=== PATIENT | female | born 1960 | race Hispanic/Latino ===

== ENCOUNTER 2020-08-07 09:46 | Emergency (ER) | payer OTHER, SELFPAY ==
[2020-08-07] MEDS ORDERED: Ondansetron PF 4 MG/2 ML Vial ONE (11:27)
[2020-08-07] MEDS ORDERED: Morphine 4 MG/ML VIAL ONE (11:27)
[2020-08-07] MEDS ORDERED: Ketorolac Tromethamine 30 MG/ML VIAL ONE (11:34)
[2020-08-07 12:05] LABS: #Lymphocytes 1.3 thou/uL (1.20-3.40); #Monocytes 0.9 thou/uL (0.11-0.59); %Basophils 0.2 % (0.0-1.0); %Eosinophils 0.3 % (0.0-10.0); %Lymphocytes 8.7 % (21.0-51.0); %Neutrophils 84.8 % (42.0-75.0); Hemoglobin 10.5 g/dL (12.0-16.0); Mean Corpuscular HGB CONC 33.4 g/dL (32.0-36.0); Mean Corpuscular Hemoglobin 28.6 pg (27.0-31.0); Mean Corpuscular Volume 85.5 fL (78.0-98.0); Mean Platelet Volume 8.1 fL (7.4-10.4); Platelet Count 161 thou/uL (130-400); RBC Distribution Width 12.5 % (11.5-14.5); Red Blood Cell (RBC) Count 3.67 mill/uL (4.20-5.40); White Blood Cell (WBC) Count 15.3 thou/uL (4.8-10.8)
[2020-08-07 12:24] LABS: ALT (SGPT) 22 U/L (8-55); AST (SGOT) 13 U/L (5-34); Albumin 2.2 g/dL (3.5-5.0); Alkaline Phosphatase 155 U/L (40-110); Anion Gap 13 mmol/L (10-20); BUN (Urea Nitrogen) 30 mg/dL (9.8-20.1); Bilirubin, Total 0.7 mg/dL (0.2-1.2); Calc. Creatinine Clearance 0 mL/min (70-130); Carbon Dioxide 22 mmol/L (22-29); Chloride 103 mmol/L (98-107); Globulin 3.5 g/dL (2.4-3.5); Glucose 219 mg/dL (70-105); Lipase Less than 4 U/L (8-78); Potassium 3.8 mmol/L (3.5-5.1); Protein, Total 5.7 g/dL (6.0-8.3); Sodium 134 mmol/L (136-145)
--- NOTE | 2020-08-07 13:50 | CT ---
CT Abdomen Pelvis WO Con 08/07/2020 1:30 PM HISTORY: Suprapubic pain as well as left groin pain with radiation of pain into the left lower extremity. COMPARISON: 08/26/2012 Technique: Multiple contiguous axial CT images are obtained through the abdomen and pelvis without IV contrast. Coronal reformats are provided. FINDINGS: This examination is limited for the evaluation of solid organs and vascular structures due to the lac k of intravenous contrast. Lower Chest: Minimal bilateral pleural effusions are present with associated passive atelectasis grea ter on the left. Liver: Grossly normal non-enhanced CT appearance. Gallbladder: Not visualized in likely surgically absent. Pancreas: Grossly normal nonenhanced CT appearance. Spleen: Grossly normal nonenhanced CT appearance. Adrenals: Normal nonenhanced appearance of the right adrenal gland. Left gland is not delineated and likely surgically absent. Kidneys and ureters: Evidence of left nephrectomy. No right renal or ureteral calculus is seen. There is mild caliectasis on the right similar to prior study. Perinephric stranding is seen on the right. While this is nonspecific, pyelonephritis would be difficult to exclude. Correlation with urin alysis is recommended. Urinary bladder: Urinary bladder has a normal CT appearance. Reproductive Organs: There are a few exophytic increased density structures seen involving the anteri or as well as posterior body of the uterus measuring approximately 2 cm probably representing uterine fibroids. Lymph Nodes: No enlarged lymph nodes. Bowel: Normal caliber. Appendix: The appendix is normal in caliber. Peritoneum: Minimal inflammatory stranding seen in the region of the root of the mesentery. Retroperitoneum: within normal limits. Vessels: Vascular calcifications in the abdominal aorta and iliac arteries. Abdominal Wall: There is inflammatory stranding seen in the left inguinal region and extending inferi nagi and medially into the medial aspect of the fat in the perineal region. There is incomplete visualization of a low-density structure in the most inferior aspect of the perineal fat measuring 17 mm x 8 mm. This could represent focus of fluid but is incompletely imaged. No obvious fluid collection is seen to suggest abscess in this region. Few mildly prominent lymph nodes are seen in th e left inguinal region measuring 1.2 cm in short axis dimension likely reactive in origin. Bones: 6 IMPRESSION: 1. Inflammatory stranding left inguinal region which extends inferiorly and medially into the perinea l fat lowermost pelvis with incompletely visualization of low-density structure measuring 17 mm located inferiorly. Inflammatory stranding may related to infectious or inflammatory process. No defi mary jo fluid collection is seen to suggest abscess. 2. Reactive left inguinal lymphadenopathy. 3. Right perinephric inflammatory stranding of uncertain etiology. This was not seen on a study in 20 13. Pyelonephritis is a possibility, and correlation with urinalysis is recommended. There is minimal nonspecific caliectasis without hydroureter. 4. Evidence of left adrenalectomy and nephrectomy. 5. Minimal bilateral pleural effusions. 6. Probable uterine fibroids. 7. Minimal inflammatory changes related to the mesentery.
[2020-08-07] MEDS ORDERED: Cefepime 2 GM VIAL ONE (14:36)
[2020-08-07] MEDS ORDERED: Vancomycin 1.5 GRAM/300 ML BAG 1.5 GM in Premix Bag 1 BAG IVPB SCH (14:45)
[2020-08-07 14:53] LABS: Bacteria/HPF 4+ HPF (None Seen); Bilirubin Negative (Negative); Blood, Urine 2+ (Negative); Clarity Turbid (Clear); Glucose, Urine (Dipstick) Greater than 1000 mg/dL (Negative); Ketone, Urine Negative (Negative); Leukocyte 75 Leu/uL (Negative); Nitrite Negative (Negative); Protein, Urine (Dipstick) 600 mg/dL (Neg-Trace); Specific Gravity, Urine 1.019 (1.002-1.036); WBC/HPF Greater than 50 HPF (0-3)
--- NOTE | 2020-08-08 19:20 | CON ---
DATE OF CONSULTATION: REASON FOR CONSULTATION: Elevated creatinine. HISTORY OF PRESENT ILLNESS: This is a very pleasant 59-year-old female, followed by Dr. Crow, presented to the hospital after noted anuria. A Hernández catheter was placed, and the patient was urinating. The patient also has a rise in creatinine from 1.8 to 2.6, so I was consulted. The patient is having pelvic discomfort and UTI-like symptoms. PAST MEDICAL HISTORY: Significant for hypercholesterol, diabetes mellitus. SOCIOECONOMIC HISTORY: No alcohol or drug abuse. FAMILY HISTORY: Negative for ESRD. ALLERGIES: REVIEWED. HOME MEDICATIONS: List reviewed. HOSPITAL MEDICATIONS: List reviewed. REVIEW OF SYSTEMS: 15-point review of systems was performed, was negative except for positives noted above. HEENT: Eyes intact, no diplopia. Ears: No hearing loss or earache. Nose: No discharge or bleeding. CHEST: No cough or phlegm. ABDOMEN: No nausea or vomiting. GENITOURINARY: No hematuria. No Hernández catheter. MUSCULOSKELETAL: No low back pain. No joint swelling or pain. NEUROLOGICAL: No syncope. No seizures. SKIN: No complaints of rash or itching. PSYCHIATRIC: No depression. CONSTITUTIONAL: No weight loss or loss of appetite. PHYSICAL EXAMINATION: GENERAL: The patient is awake and alert. VITAL SIGNS: Afebrile, pulse 85, breathing at 16, blood pressure 166/87. HEENT: Head normocephalic and atraumatic. Eyes intact, no ulcers. Nose intact, no ulcers. Ears intact, no ulcers. NECK: Supple. No JVD. CHEST: Symmetrical and clear. CARDIOVASCULAR: Shows S1 and S2, no rub, no murmur. GASTROINTESTINAL: Abdomen is soft, bowel sounds positive. EXTREMITIES: Show no edema or ulcers. SKIN: Shows no rash or petechiae. MUSCULOSKELETAL: Shows no joint swelling or stiffness. GENITOURINARY: Shows Hernández with urine present. NEUROLOGIC: Motor intact. Cranial nerves intact. ASSESSMENT AND RECOMMENDATION: 1. Acute kidney injuries with chronic kidney disease, most likely due to complicated urinary tract infection and/or bladder dysfunction. Treatment per primary team. No indication for dialysis. 2. Anemia, stable. Medication based on GFR appropriate. 3. Proteinuria, Dr. Crow will take over care of this patient tomorrow. Job ID: [id number]
== END 2020-08-07 16:15 | disposition home or self-care (01) ==
LOC: ERS 09:46
DX: L02.214 Cutaneous abscess of groin (principal); N10 Acute pyelonephritis; I10 Essential (primary) hypertension; E11.9 Type 2 diabetes mellitus without complications; E78.00 Pure hypercholesterolemia, unspecified
CPT/HCPCS: 36415; 74176; 80053; 81003; 81015; 83605; 83690; 85025; 87040; 96365; 96375; J0692; J1885; J2270; J2405; J3370

== ENCOUNTER 2020-08-08 16:03 | Inpatient (IN) | payer SELFPAY ==
[2020-08-08 17:03] LABS: Bacteria/HPF 1+ HPF (None Seen); Bilirubin Negative (Negative); Blood, Urine 2+ (Negative); Clarity Turbid (Clear); Glucose, Urine (Dipstick) Greater than 1000 mg/dL (Negative); Ketone, Urine Negative (Negative); Leukocyte Negative Leu/uL (Negative); Nitrite Negative (Negative); Protein, Urine (Dipstick) 600 mg/dL (Neg-Trace); Specific Gravity, Urine 1.016 (1.002-1.036); Squamous Epithelial 0-3 HPF (0-3); Urobilinogen 3 mg/dL (Less than 2)
[2020-08-08 17:22] LABS: Hemoglobin 10.4 g/dL (12.0-16.0); Mean Corpuscular HGB CONC 33.9 g/dL (32.0-36.0); Mean Corpuscular Hemoglobin 29.3 pg (27.0-31.0); Mean Corpuscular Volume 86.3 fL (78.0-98.0); Platelet Count 180 thou/uL (130-400); RBC Distribution Width 12.6 % (11.5-14.5); Red Blood Cell (RBC) Count 3.56 mill/uL (4.20-5.40); White Blood Cell (WBC) Count 18.8 thou/uL (4.8-10.8)
[2020-08-08 17:44] LABS: ALT (SGPT) 29 U/L (8-55); AST (SGOT) 15 U/L (5-34); Albumin 2.2 g/dL (3.5-5.0); Alkaline Phosphatase 178 U/L (40-110); Anion Gap 14 mmol/L (10-20); BUN (Urea Nitrogen) 35 mg/dL (9.8-20.1); Bilirubin, Total 0.8 mg/dL (0.2-1.2); Calc. Creatinine Clearance 0 mL/min (70-130); Calcium 7.9 mg/dL (7.8-10.44); Carbon Dioxide 20 mmol/L (22-29); Chloride 100 mmol/L (98-107); Globulin 3.8 g/dL (2.4-3.5); Glucose 238 mg/dL (70-105); Potassium 4.1 mmol/L (3.5-5.1); Sodium 130 mmol/L (136-145)
[2020-08-08 17:48] LABS: Band 47 % (5-11); Lymphocytes 3 % (21-51); MDiff Complete? YES; Monocytes 6 % (0-10); Neutrophil 43 % (42-75); Platelet Morphology Comment Appears Adequate; RBC Morphology Normal; Reactive Lymphocytes 1 % (0-10); Reflex for Review?? NO
[2020-08-08] MEDS ORDERED: cefTRIAXone\\ROCEPHIN 2 GM VIAL ONE (18:27)
[2020-08-08] MEDS ORDERED: VANCOMYCIN 2 GRAM/400 ML BAG 2 GM in Premix Bag 1 BAG IVPB SCH (18:45)
[2020-08-08 19:28] LABS: INR-International Normal Ratio 1.1; Prothrombin Time 14.3 sec (12.0-14.7)
[2020-08-08 19:29] LABS: PTT 37.2 sec (22.9-36.1)
[2020-08-08] MEDS ORDERED: Ondansetron ODT 4 MG TAB PO PRN (20:00)
[2020-08-08] MEDS ORDERED: Vancomycin HCl 1.5 GM in Sodium Chloride 0.9% 250 ML 300 ML IVPB SCH (21:00)
[2020-08-08 21:06] VITALS: BMI 45.7
[2020-08-08] MEDS ORDERED: Piperacillin/Tazobactam 4.5 GM in Sodium Chloride 0.9% 100 ML IVPB SCH (21:30)
[2020-08-08] MEDS ORDERED: Piperacillin/Tazobactam 4.5 GM VIAL ONE (21:58)
[2020-08-08] MEDS: Acetaminophen 325 MG TAB PO PRN (22:00)
[2020-08-08] MEDS ORDERED: Meropenem 1 GM in Sodium Chloride 0.9% 100 ML IVPB SCH (22:00)
[2020-08-08] MEDS: Heparin 5,000 UNITS/ML VIAL SC SCH (22:02)
[2020-08-08] MEDS: Sodium Chloride 0.9% 1,000 ML IV SCH (22:03)
[2020-08-09 00:46] LABS: SARS-CoV-2 PCR by NAA Not Detected (NotDetected)
[2020-08-09] MEDS: HYDROcodone/Acetaminophen 5/325 mg Tablet PO PRN ×3 (02:20→15:33)
[2020-08-09] MEDS ORDERED: HumaLOG 300 UNITS/3 ML VIAL SC PRN (03:32)
[2020-08-09] MEDS ORDERED: Dextrose 5% in Water 1,000 ML IV PRN (03:32)
[2020-08-09] MEDS ORDERED: Dextrose 50% Abboject 50 ML SYRINGE SLOW IVP PRN (03:32)
[2020-08-09] MEDS ORDERED: Piperacillin/Tazobactam 2.25 GM in Sodium Chloride 0.9% 100 ML IVPB SCH (06:00)
[2020-08-09 06:21] LABS: Anion Gap 17 mmol/L (10-20); BUN (Urea Nitrogen) 37 mg/dL (9.8-20.1); Calc. Creatinine Clearance 37 mL/min (70-130); Calcium 7.5 mg/dL (7.8-10.44); Carbon Dioxide 15 mmol/L (22-29); Chloride 104 mmol/L (98-107); Glucose 164 mg/dL (70-105); Potassium 4.2 mmol/L (3.5-5.1); Sodium 132 mmol/L (136-145)
[2020-08-09 06:22] LABS: Hemoglobin 9.9 g/dL (12.0-16.0); Mean Corpuscular HGB CONC 32.9 g/dL (32.0-36.0); Mean Corpuscular Hemoglobin 28.7 pg (27.0-31.0); Mean Corpuscular Volume 87.1 fL (78.0-98.0); Mean Platelet Volume 8.4 fL (7.4-10.4); Platelet Count 173 thou/uL (130-400); RBC Distribution Width 12.6 % (11.5-14.5); Red Blood Cell (RBC) Count 3.46 mill/uL (4.20-5.40); White Blood Cell (WBC) Count 16.7 thou/uL (4.8-10.8)
[2020-08-09] MEDS ORDERED: DAPTOmycin 500 MG in Sodium Chloride 0.9% 100 ML IVPB SCH (09:00)
[2020-08-09 09:15] LABS: Band 38 % (5-11); Eosinophils 2 % (0-10); Lymphocytes 2 % (21-51); MDiff Complete? YES; Monocytes 4 % (0-10); Neutrophil 54 % (42-75); Platelet Morphology Comment Appears Adequate; Polychromasia SLIGHT = 2-3 cells (100X) (0-2/hpf); Vacuoles SLIGHT
[2020-08-09] MEDS: Heparin 5,000 UNITS/ML VIAL SC SCH ×3 (09:20→22:33)
[2020-08-09] MEDS: Sodium Chloride 0.9% 1,000 ML IV SCH ×2 (09:20→17:13)
[2020-08-09] MEDS: Meropenem 500 MG in Sodium Chloride 0.9% 100 ML IVPB SCH (14:43)
[2020-08-09] MEDS: Ondansetron PF 4 MG/2 ML Vial IVP PRN ×2 (17:12→22:38)
[2020-08-09] MEDS ORDERED: Vancomycin 1 GM in Premix Bag 1 BAG IVPB SCH (18:00)
[2020-08-09 18:14] LABS: Vancomycin, Random 22.1 ug/mL (See Comment)
[2020-08-09 18:15] LABS: Creatinine, Urine 103.24 mg/dL (47-110)
[2020-08-10] MEDS: Sodium Chloride 0.9% 1,000 ML IV SCH ×4 (02:08→23:31)
[2020-08-10] MEDS: Meropenem 500 MG in Sodium Chloride 0.9% 100 ML IVPB SCH ×2 (02:08→15:16)
[2020-08-10 06:07] LABS: Hemoglobin 9.3 g/dL (12.0-16.0); Mean Corpuscular HGB CONC 31.3 g/dL (32.0-36.0); Mean Corpuscular Hemoglobin 27.7 pg (27.0-31.0); Mean Corpuscular Volume 88.2 fL (78.0-98.0); Platelet Count 222 thou/uL (130-400); RBC Distribution Width 12.7 % (11.5-14.5); Red Blood Cell (RBC) Count 3.36 mill/uL (4.20-5.40); White Blood Cell (WBC) Count 18.7 thou/uL (4.8-10.8)
[2020-08-10 06:30] LABS: Vancomycin, Random 20.4 ug/mL (See Comment)
[2020-08-10 06:33] LABS: Anion Gap 16 mmol/L (10-20); BUN (Urea Nitrogen) 45 mg/dL (9.8-20.1); Calc. Creatinine Clearance 28 mL/min (70-130); Calcium 7.6 mg/dL (7.8-10.44); Carbon Dioxide 16 mmol/L (22-29); Chloride 103 mmol/L (98-107); Glucose 130 mg/dL (70-105); Potassium 4.2 mmol/L (3.5-5.1); Sodium 131 mmol/L (136-145)
[2020-08-10] MEDS: Heparin 5,000 UNITS/ML VIAL SC SCH ×3 (08:29→20:42)
[2020-08-10] MEDS: Ondansetron PF 4 MG/2 ML Vial IVP PRN (08:32)
[2020-08-10 16:20] LABS: INR-International Normal Ratio 1.2; PTT 44.1 sec (22.9-36.1); Prothrombin Time 15.6 sec (12.0-14.7)
[2020-08-10] MEDS: Acetaminophen 325 MG TAB PO PRN (23:30)
[2020-08-11] MEDS: Meropenem 500 MG in Sodium Chloride 0.9% 100 ML IVPB SCH ×2 (02:06→15:06)
[2020-08-11 07:17] LABS: Hemoglobin 9.2 g/dL (12.0-16.0); Mean Corpuscular HGB CONC 31.7 g/dL (32.0-36.0); Mean Corpuscular Hemoglobin 28.4 pg (27.0-31.0); Mean Corpuscular Volume 89.5 fL (78.0-98.0); Mean Platelet Volume 7.6 fL (7.4-10.4); Platelet Count 246 thou/uL (130-400); RBC Distribution Width 12.9 % (11.5-14.5); Red Blood Cell (RBC) Count 3.22 mill/uL (4.20-5.40); White Blood Cell (WBC) Count 15.3 thou/uL (4.8-10.8)
[2020-08-11 07:33] LABS: Anion Gap 15 mmol/L (10-20); BUN (Urea Nitrogen) 49 mg/dL (9.8-20.1); Calc. Creatinine Clearance 25 mL/min (70-130); Calcium 7.8 mg/dL (7.8-10.44); Carbon Dioxide 15 mmol/L (22-29); Chloride 105 mmol/L (98-107); Glucose 93 mg/dL (70-105); Sodium 131 mmol/L (136-145)
[2020-08-11 08:14] LABS: Band 35 % (5-11); Lymphocytes 9 % (21-51); MDiff Complete? YES; Monocytes 1 % (0-10); Neutrophil 55 % (42-75); Platelet Morphology Comment Appears Adequate; Polychromasia SLIGHT = 2-3 cells (100X) (0-2/hpf)
[2020-08-11] MEDS: Heparin 5,000 UNITS/ML VIAL SC SCH ×3 (08:51→20:30)
[2020-08-11 09:01] LABS: Vancomycin, Random 17.2 ug/mL (See Comment)
[2020-08-11] MEDS ORDERED: Sodium Bicarbonate 150 MEQ in Dextrose 5% in Water 1,000 ML IV SCH (11:00)
[2020-08-11] MEDS ORDERED: Furosemide 40 MG/4 ML VIAL SLOW IVP SCH (11:00)
[2020-08-11] MEDS ORDERED: Vancomycin 1 GM in Premix Bag 1 BAG IVPB SCH (12:00)
[2020-08-11] MEDS: Linezolid 600 MG in Premix Bag 1 BAG IVPB SCH (20:29)
[2020-08-11] MEDS: Acetaminophen 325 MG TAB PO PRN (22:28)
[2020-08-12] MEDS: Meropenem 500 MG in Sodium Chloride 0.9% 100 ML IVPB SCH ×2 (02:30→15:13)
[2020-08-12 06:25] LABS: Hemoglobin 9.2 g/dL (12.0-16.0); Mean Corpuscular Hemoglobin 27.9 pg (27.0-31.0); Mean Platelet Volume 7.2 fL (7.4-10.4); Platelet Count 266 thou/uL (130-400); RBC Distribution Width 12.9 % (11.5-14.5); Red Blood Cell (RBC) Count 3.28 mill/uL (4.20-5.40); White Blood Cell (WBC) Count 16.6 thou/uL (4.8-10.8)
[2020-08-12 06:56] LABS: Anion Gap 15 mmol/L (10-20); BUN (Urea Nitrogen) 50 mg/dL (9.8-20.1); Calc. Creatinine Clearance 23 mL/min (70-130); Carbon Dioxide 17 mmol/L (22-29); Chloride 103 mmol/L (98-107); Glucose 136 mg/dL (70-105); Potassium 3.8 mmol/L (3.5-5.1); Sodium 131 mmol/L (136-145)
[2020-08-12] MEDS: Linezolid 600 MG in Premix Bag 1 BAG IVPB SCH ×2 (08:55→19:58)
[2020-08-12] MEDS: Heparin 5,000 UNITS/ML VIAL SC SCH ×3 (08:57→19:58)
[2020-08-12] MEDS: Acetaminophen 325 MG TAB PO PRN ×2 (09:07→19:56)
[2020-08-12] MEDS ORDERED: Furosemide 20 MG/2 ML VIAL SLOW IVP SCH (11:15)
[2020-08-12] MEDS ORDERED: Acetaminophen 325 MG TAB PO SCH (23:59)
[2020-08-13] MEDS: Meropenem 500 MG in Sodium Chloride 0.9% 100 ML IVPB SCH ×2 (02:34→15:01)
[2020-08-13] MEDS ORDERED: Acetaminophen 325 MG TAB PO PRN (04:50)
[2020-08-13 06:22] LABS: Hemoglobin 9.2 g/dL (12.0-16.0); Mean Corpuscular HGB CONC 32.3 g/dL (32.0-36.0); Mean Corpuscular Hemoglobin 28.3 pg (27.0-31.0); Mean Corpuscular Volume 87.6 fL (78.0-98.0); Mean Platelet Volume 7.1 fL (7.4-10.4); Platelet Count 277 thou/uL (130-400); RBC Distribution Width 13.1 % (11.5-14.5); Red Blood Cell (RBC) Count 3.23 mill/uL (4.20-5.40); White Blood Cell (WBC) Count 20.1 thou/uL (4.8-10.8)
[2020-08-13 06:37] LABS: Anion Gap 16 mmol/L (10-20); BUN (Urea Nitrogen) 50 mg/dL (9.8-20.1); Calc. Creatinine Clearance 23 mL/min (70-130); Carbon Dioxide 17 mmol/L (22-29); Chloride 102 mmol/L (98-107); Glucose 131 mg/dL (70-105); Potassium 3.6 mmol/L (3.5-5.1); Sodium 131 mmol/L (136-145)
[2020-08-13] MEDS: Acetaminophen 325 MG TAB PO PRN ×2 (09:11→15:14)
[2020-08-13] MEDS: Linezolid 600 MG in Premix Bag 1 BAG IVPB SCH ×2 (09:13→22:19)
[2020-08-13] MEDS: Heparin 5,000 UNITS/ML VIAL SC SCH ×3 (09:14→22:19)
[2020-08-13] MEDS ORDERED: Furosemide 20 MG/2 ML VIAL SLOW IVP SCH (14:30)
[2020-08-13 15:10] LABS: ANA Symphony (Qualitative) Negative (Negative); ANA Symphony (Quantitative) 0.2 Ratio (< 0.7 Negative); dsDNA IgG Antibody Less than 0.5 IU/mL (<10 Negative)
[2020-08-14] MEDS: Meropenem 500 MG in Sodium Chloride 0.9% 100 ML IVPB SCH ×2 (02:04→14:31)
[2020-08-14 05:54] LABS: Hemoglobin 9.6 g/dL (12.0-16.0); Mean Corpuscular HGB CONC 32.2 g/dL (32.0-36.0); Mean Corpuscular Hemoglobin 28.2 pg (27.0-31.0); Mean Corpuscular Volume 87.6 fL (78.0-98.0); Mean Platelet Volume 6.7 fL (7.4-10.4); Platelet Count 265 thou/uL (130-400); RBC Distribution Width 13.2 % (11.5-14.5); Red Blood Cell (RBC) Count 3.38 mill/uL (4.20-5.40)
[2020-08-14 06:12] LABS: Anion Gap 14 mmol/L (10-20); BUN (Urea Nitrogen) 50 mg/dL (9.8-20.1); Calc. Creatinine Clearance 25 mL/min (70-130); Carbon Dioxide 19 mmol/L (22-29); Chloride 103 mmol/L (98-107); Glucose 145 mg/dL (70-105); Potassium 3.6 mmol/L (3.5-5.1); Sodium 132 mmol/L (136-145)
[2020-08-14] MEDS: Linezolid 600 MG in Premix Bag 1 BAG IVPB SCH ×2 (07:59→20:45)
[2020-08-14] MEDS: Heparin 5,000 UNITS/ML VIAL SC SCH ×3 (08:00→20:47)
[2020-08-14] MEDS: Acetaminophen 325 MG TAB PO PRN ×3 (08:14→19:07)
[2020-08-14] MEDS: Sodium Chloride 0.9% 1,000 ML IV SCH (15:55)
[2020-08-14] MEDS ORDERED: Lidocaine 1% (PF) 30 ML VIAL ONE (16:59)
[2020-08-15] MEDS: Acetaminophen 325 MG TAB PO PRN ×4 (04:05→19:31)
[2020-08-15] MEDS: Meropenem 500 MG in Sodium Chloride 0.9% 100 ML IVPB SCH ×2 (04:06→15:16)
[2020-08-15] MEDS: Sodium Chloride 0.9% 1,000 ML IV SCH ×2 (06:01→15:17)
[2020-08-15] MEDS: Heparin 5,000 UNITS/ML VIAL SC SCH ×3 (08:11→20:30)
[2020-08-15] MEDS: Linezolid 600 MG in Premix Bag 1 BAG IVPB SCH ×2 (08:11→20:29)
[2020-08-15 12:34] LABS: #Basophils 0.1 thou/uL (0.0-0.2); #Eosinphils 0.1 thou/uL (0.0-0.7); #Lymphocytes 1.6 thou/uL (1.20-3.40); #Monocytes 0.7 thou/uL (0.11-0.59); #Neutrophils 17.3 thou/uL (1.40-6.50); %Basophils 0.3 % (0.0-1.0); %Eosinophils 0.6 % (0.0-10.0); %Lymphocytes 8.2 % (21.0-51.0); %Monocytes 3.3 % (0.0-10.0); %Neutrophils 87.5 % (42.0-75.0); Hemoglobin 10.2 g/dL (12.0-16.0); Mean Corpuscular HGB CONC 33.1 g/dL (32.0-36.0); Mean Corpuscular Hemoglobin 29.1 pg (27.0-31.0); Mean Platelet Volume 6.3 fL (7.4-10.4); Platelet Count 243 thou/uL (130-400); RBC Distribution Width 13.1 % (11.5-14.5); Red Blood Cell (RBC) Count 3.51 mill/uL (4.20-5.40); White Blood Cell (WBC) Count 19.7 thou/uL (4.8-10.8)
[2020-08-15 12:50] LABS: Anion Gap 14 mmol/L (10-20); BUN (Urea Nitrogen) 50 mg/dL (9.8-20.1); Calc. Creatinine Clearance 43 mL/min (70-130); Calcium 7.9 mg/dL (7.8-10.44); Carbon Dioxide 20 mmol/L (22-29); Chloride 105 mmol/L (98-107); Glucose 147 mg/dL (70-105); Potassium 4.1 mmol/L (3.5-5.1); Sodium 135 mmol/L (136-145)
[2020-08-15] MEDS: HumaLOG 300 UNITS/3 ML VIAL SC PRN (13:29)
[2020-08-16] MEDS: Meropenem 500 MG in Sodium Chloride 0.9% 100 ML IVPB SCH ×2 (03:06→15:33)
[2020-08-16] MEDS: Acetaminophen 325 MG TAB PO PRN ×2 (05:34→12:14)
[2020-08-16] MEDS ORDERED: hydrALAZINE 20 MG/ML VIAL SLOW IVP SCH (06:30)
[2020-08-16 06:31] LABS: #Basophils 0.1 thou/uL (0.0-0.2); #Eosinphils 0.1 thou/uL (0.0-0.7); #Lymphocytes 1.8 thou/uL (1.20-3.40); #Monocytes 0.5 thou/uL (0.11-0.59); #Neutrophils 14.5 thou/uL (1.40-6.50); %Basophils 0.4 % (0.0-1.0); %Eosinophils 0.6 % (0.0-10.0); %Lymphocytes 10.5 % (21.0-51.0); %Neutrophils 85.4 % (42.0-75.0); Hemoglobin 10.4 g/dL (12.0-16.0); Mean Corpuscular Volume 88.1 fL (78.0-98.0); Mean Platelet Volume 6.5 fL (7.4-10.4); Platelet Count 227 thou/uL (130-400); RBC Distribution Width 13.2 % (11.5-14.5); Red Blood Cell (RBC) Count 3.58 mill/uL (4.20-5.40)
[2020-08-16 06:51] LABS: Anion Gap 13 mmol/L (10-20); BUN (Urea Nitrogen) 45 mg/dL (9.8-20.1); Calc. Creatinine Clearance 30 mL/min (70-130); Carbon Dioxide 21 mmol/L (22-29); Chloride 105 mmol/L (98-107); Glucose 142 mg/dL (70-105); Potassium 3.8 mmol/L (3.5-5.1); Sodium 135 mmol/L (136-145)
[2020-08-16] MEDS: Heparin 5,000 UNITS/ML VIAL SC SCH ×3 (07:45→20:42)
[2020-08-16] MEDS: Linezolid 600 MG in Premix Bag 1 BAG IVPB SCH ×2 (07:47→20:47)
[2020-08-16] MEDS: Sodium Chloride 0.9% 1,000 ML IV SCH (11:48)
[2020-08-16] MEDS: HumaLOG 300 UNITS/3 ML VIAL SC PRN (12:11)
[2020-08-16] MEDS ORDERED: Amlodipine 10 MG TAB PO SCH (14:45)
[2020-08-16] MEDS: hydrALAZINE 25 MG TAB PO SCH ×2 (15:32→20:41)
[2020-08-16] MEDS: Sodium Bicarbonate Tab 325 MG TAB PO SCH (15:33)
[2020-08-17] MEDS ORDERED: hydrALAZINE 20 MG/ML VIAL SLOW IVP PRN (00:27)
[2020-08-17] MEDS: Meropenem 500 MG in Sodium Chloride 0.9% 100 ML IVPB SCH ×2 (03:21→14:31)
[2020-08-17] MEDS: Acetaminophen 325 MG TAB PO PRN ×2 (04:49→14:28)
[2020-08-17] MEDS: HumaLOG 300 UNITS/3 ML VIAL SC PRN ×2 (04:52→16:31)
[2020-08-17 06:10] LABS: #Basophils 0.1 thou/uL (0.0-0.2); #Eosinphils 0.1 thou/uL (0.0-0.7); #Lymphocytes 1.5 thou/uL (1.20-3.40); #Monocytes 0.5 thou/uL (0.11-0.59); #Neutrophils 15.9 thou/uL (1.40-6.50); %Basophils 0.3 % (0.0-1.0); %Eosinophils 0.6 % (0.0-10.0); %Lymphocytes 8.3 % (21.0-51.0); %Monocytes 2.9 % (0.0-10.0); %Neutrophils 87.9 % (42.0-75.0); Hemoglobin 9.6 g/dL (12.0-16.0); Mean Corpuscular HGB CONC 32.2 g/dL (32.0-36.0); Mean Corpuscular Hemoglobin 28.3 pg (27.0-31.0); Mean Corpuscular Volume 87.9 fL (78.0-98.0); Mean Platelet Volume 6.7 fL (7.4-10.4); Platelet Count 179 thou/uL (130-400); RBC Distribution Width 13.3 % (11.5-14.5); White Blood Cell (WBC) Count 18.1 thou/uL (4.8-10.8)
[2020-08-17 06:28] LABS: Anion Gap 13 mmol/L (10-20); BUN (Urea Nitrogen) 44 mg/dL (9.8-20.1); Calc. Creatinine Clearance 35 mL/min (70-130); Calcium 7.7 mg/dL (7.8-10.44); Carbon Dioxide 19 mmol/L (22-29); Chloride 106 mmol/L (98-107); Glucose 145 mg/dL (70-105); Potassium 3.8 mmol/L (3.5-5.1); Sodium 134 mmol/L (136-145)
[2020-08-17] MEDS: Sodium Bicarbonate Tab 325 MG TAB PO SCH ×2 (08:07→16:31)
[2020-08-17] MEDS: Heparin 5,000 UNITS/ML VIAL SC SCH ×3 (08:08→20:49)
[2020-08-17] MEDS: hydrALAZINE 25 MG TAB PO SCH ×3 (08:08→20:48)
[2020-08-17] MEDS: Amlodipine 10 MG TAB PO SCH (08:09)
[2020-08-17] MEDS: Linezolid 600 MG in Premix Bag 1 BAG IVPB SCH ×2 (08:09→20:49)
[2020-08-18] MEDS: Meropenem 500 MG in Sodium Chloride 0.9% 100 ML IVPB SCH ×2 (03:07→14:52)
[2020-08-18] MEDS: Acetaminophen 325 MG TAB PO PRN ×3 (04:23→20:56)
[2020-08-18] MEDS: HumaLOG 300 UNITS/3 ML VIAL SC PRN (05:51)
[2020-08-18 05:58] LABS: #Eosinphils 0.1 thou/uL (0.0-0.7); #Lymphocytes 1.4 thou/uL (1.20-3.40); #Monocytes 0.4 thou/uL (0.11-0.59); #Neutrophils 13.3 thou/uL (1.40-6.50); %Basophils 0.1 % (0.0-1.0); %Eosinophils 0.8 % (0.0-10.0); %Monocytes 2.7 % (0.0-10.0); %Neutrophils 87.4 % (42.0-75.0); Hemoglobin 9.2 g/dL (12.0-16.0); Mean Corpuscular HGB CONC 31.6 g/dL (32.0-36.0); Mean Corpuscular Hemoglobin 27.9 pg (27.0-31.0); Mean Corpuscular Volume 88.3 fL (78.0-98.0); Mean Platelet Volume 6.6 fL (7.4-10.4); Platelet Count 166 thou/uL (130-400); RBC Distribution Width 13.5 % (11.5-14.5); White Blood Cell (WBC) Count 15.2 thou/uL (4.8-10.8)
[2020-08-18 06:17] LABS: Anion Gap 13 mmol/L (10-20); BUN (Urea Nitrogen) 47 mg/dL (9.8-20.1); Calc. Creatinine Clearance 33 mL/min (70-130); Calcium 7.7 mg/dL (7.8-10.44); Carbon Dioxide 20 mmol/L (22-29); Chloride 103 mmol/L (98-107); Glucose 165 mg/dL (70-105); Sodium 132 mmol/L (136-145)
[2020-08-18] MEDS: Linezolid 600 MG in Premix Bag 1 BAG IVPB SCH ×2 (07:57→20:57)
[2020-08-18] MEDS: Heparin 5,000 UNITS/ML VIAL SC SCH ×3 (07:58→20:53)
[2020-08-18] MEDS: hydrALAZINE 25 MG TAB PO SCH ×3 (07:58→20:53)
[2020-08-18] MEDS: Sodium Bicarbonate Tab 325 MG TAB PO SCH ×2 (07:58→15:34)
[2020-08-18] MEDS: Amlodipine 10 MG TAB PO SCH (07:58)
[2020-08-19] MEDS: Meropenem 500 MG in Sodium Chloride 0.9% 100 ML IVPB SCH ×2 (03:16→15:49)
[2020-08-19 05:26] LABS: #Eosinphils 0.1 thou/uL (0.0-0.7); #Lymphocytes 1.3 thou/uL (1.20-3.40); #Monocytes 0.4 thou/uL (0.11-0.59); #Neutrophils 13.1 thou/uL (1.40-6.50); %Basophils 0.2 % (0.0-1.0); %Eosinophils 0.9 % (0.0-10.0); %Lymphocytes 8.8 % (21.0-51.0); %Monocytes 2.8 % (0.0-10.0); %Neutrophils 87.3 % (42.0-75.0); Hemoglobin 9.3 g/dL (12.0-16.0); Mean Corpuscular HGB CONC 33.4 g/dL (32.0-36.0); Mean Corpuscular Hemoglobin 29.5 pg (27.0-31.0); Mean Corpuscular Volume 88.2 fL (78.0-98.0); Mean Platelet Volume 6.6 fL (7.4-10.4); Platelet Count 146 thou/uL (130-400); RBC Distribution Width 13.2 % (11.5-14.5); Red Blood Cell (RBC) Count 3.15 mill/uL (4.20-5.40)
[2020-08-19] MEDS: hydrALAZINE 25 MG TAB PO SCH ×3 (08:54→21:05)
[2020-08-19] MEDS: Amlodipine 10 MG TAB PO SCH (08:54)
[2020-08-19] MEDS: Sodium Bicarbonate Tab 325 MG TAB PO SCH ×2 (08:54→15:44)
[2020-08-19] MEDS: Linezolid 600 MG in Premix Bag 1 BAG IVPB SCH ×2 (08:55→21:05)
[2020-08-19] MEDS: Heparin 5,000 UNITS/ML VIAL SC SCH ×3 (08:55→20:43)
[2020-08-19 10:53] LABS: Anion Gap 13 mmol/L (10-20); BUN (Urea Nitrogen) 52 mg/dL (9.8-20.1); Calc. Creatinine Clearance 33 mL/min (70-130); Calcium 7.7 mg/dL (7.8-10.44); Carbon Dioxide 20 mmol/L (22-29); Chloride 104 mmol/L (98-107); Glucose 172 mg/dL (70-105); Potassium 4.2 mmol/L (3.5-5.1); Sodium 133 mmol/L (136-145)
[2020-08-19] MEDS: HumaLOG 300 UNITS/3 ML VIAL SC PRN (12:06)
[2020-08-20 06:07] LABS: #Eosinphils 0.1 thou/uL (0.0-0.7); #Lymphocytes 1.5 thou/uL (1.20-3.40); #Monocytes 0.4 thou/uL (0.11-0.59); #Neutrophils 10.3 thou/uL (1.40-6.50); %Eosinophils 0.8 % (0.0-10.0); %Lymphocytes 12.3 % (21.0-51.0); %Monocytes 3.5 % (0.0-10.0); %Neutrophils 83.4 % (42.0-75.0); Hemoglobin 8.7 g/dL (12.0-16.0); Mean Corpuscular HGB CONC 32.8 g/dL (32.0-36.0); Mean Corpuscular Hemoglobin 28.9 pg (27.0-31.0); Mean Platelet Volume 6.5 fL (7.4-10.4); Platelet Count 131 thou/uL (130-400); RBC Distribution Width 13.3 % (11.5-14.5); White Blood Cell (WBC) Count 12.3 thou/uL (4.8-10.8)
[2020-08-20 06:30] LABS: Anion Gap 14 mmol/L (10-20); BUN (Urea Nitrogen) 55 mg/dL (9.8-20.1); Calc. Creatinine Clearance 32 mL/min (70-130); Calcium 7.7 mg/dL (7.8-10.44); Carbon Dioxide 19 mmol/L (22-29); Chloride 102 mmol/L (98-107); Glucose 115 mg/dL (70-105); Potassium 4.4 mmol/L (3.5-5.1); Sodium 131 mmol/L (136-145)
[2020-08-20] MEDS: hydrALAZINE 25 MG TAB PO SCH ×2 (08:23→15:17)
[2020-08-20] MEDS: Sodium Bicarbonate Tab 325 MG TAB PO SCH ×2 (08:23→15:17)
[2020-08-20] MEDS: Amlodipine 10 MG TAB PO SCH (08:23)
[2020-08-20] MEDS: Heparin 5,000 UNITS/ML VIAL SC SCH ×2 (08:23→15:18)
[2020-08-20] MEDS: Linezolid 600 MG in Premix Bag 1 BAG IVPB SCH (08:24)
[2020-08-20] MEDS ORDERED: Meropenem 500 MG in Sodium Chloride 0.9% 100 ML IVPB SCH (15:00)
[2020-08-20 16:01] VITALS: TEMP 97.6
[2020-08-20 18:23] VITALS: BP 158/74
== END 2020-08-20 19:15 | disposition home or self-care (01) | DRG 871 ==
LOC: ERS 16:03 → T4-A 18:39
PROVIDERS: ADMIT Internal Medicine; ATTEND Internal Medicine
DX: A41.9 Sepsis, unspecified organism (principal); N17.0 Acute kidney failure with tubular necrosis; N39.0 Urinary tract infection, site not specified; L02.214 Cutaneous abscess of groin; E87.1 Hypo-osmolality and hyponatremia; E87.2 Acidosis; L03.314 Cellulitis of groin; J90 Pleural effusion, not elsewhere classified; N12 Tubulo-interstitial nephritis, not specified as acute or chronic; N18.4 Chronic kidney disease, stage 4 (severe); Z68.42 Body mass index [BMI] 45.0-49.9, adult; E78.00 Pure hypercholesterolemia, unspecified; Z90.5 Acquired absence of kidney; Z88.5 Allergy status to narcotic agent; Z88.8 Allergy status to other drugs, medicaments and biological substances; Z79.84 Long term (current) use of oral hypoglycemic drugs; Z85.528 Personal history of other malignant neoplasm of kidney; Z83.3 Family history of diabetes mellitus; D64.9 Anemia, unspecified; I12.9 Hypertensive chronic kidney disease with stage 1 through stage 4 chronic kidney disease, or unspecified chronic kidney disease; E11.22 Type 2 diabetes mellitus with diabetic chronic kidney disease; E88.09 Other disorders of plasma-protein metabolism, not elsewhere classified; Z79.4 Long term (current) use of insulin; R19.7 Diarrhea, unspecified; E11.628 Type 2 diabetes mellitus with other skin complications; E66.01 Morbid (severe) obesity due to excess calories; N31.9 Neuromuscular dysfunction of bladder, unspecified; R33.9 Retention of urine, unspecified
CPT/HCPCS: 36415; 36416; 51702; 71045; 72195; 74176; 76775; 76856; 80048; 80053; 80202; 81003; 81015; 82570; 83605; 84156; 85007; 85025; 85027; 85610; 85730; 86038; 86140; 86225; 86850; 86900; 86901; 87040; 87045; 87046; 87086; 87324; 87328; 87329; 87427; 87449; 87635; 96365; 96375; J0360; J0696; J1644; J1815; J1940; J2001; J2020; J2185; J2405; J2543; J3370; J3490; J7070; Q0162; U0003; U0005